=== PATIENT | male | born 2000 | race Caucasian/White ===

== ENCOUNTER 2020-05-06 12:57 | Emergency (ER) | payer OTHER, SELFPAY ==
[2020-05-06 13:11] VITALS: BP 136/72; PULSE 113; RESP 16; TEMP 36.3; O2SAT 99
--- NOTE | 2020-05-06 13:42 | ED.FEVER ---
HPI - Fever General Chief Complaint: Fever Stated Complaint: fever Time Seen by Provider: 05/06/20 13:35 Source: patient Mode of arrival: ambulatory Limitations: no limitations History of Present Illness HPI Narrative: Eriberto Ramachandran is a 19 yo male with no PMH who comes to the [facility] care after 6 days of illness he has been COVID tested x2 which are negative he has had 2 telemedicine visits with his PCP who on the first 1 gave him Zithromax to try to treat sinusitis with no effect. Last week his temperature was up to 103 point 2 at night his temperature starts to rise again and gets around 102 even with the use of Tylenol. He is pale, diaphoretic, and tachycardic. States that he has cough on occasion and is coughing up bloody mucus at times. He has not been eating much but has been hydrating most of the week; his PCP told him to be seen in [id number]; symptoms have been for last week Related Data Home Medications Medication Instructions Recorded Confirmed citalopram [Celexa] 40 mg PO DAILY 05/06/20 05/06/20 montelukast [Singulair] 10 mg PO DAILY 05/06/20 05/06/20 Allergies Allergy/AdvReac Type Severity Reaction Status Date / Time Quinolones Allergy Anaphylactic Verified 05/06/20 13:25 Shock Review of Systems Review of Systems: Narrative: CONSTITUTIONAL: Has fever, chills, has sweats. EYES: Denies visual changes, redness, discharge. ENT has s rhinorrhea, congestion, sore throat, otalgia. CARDIOVASCULAR: Denies chest pain, palpitations, edema. RESPIRATORY: Denies dyspnea, wheezing, has cough GASTROINTESTINAL: Denies abdominal pain, nausea, vomiting, diarrhea. GENITOURINARY: Denies dysuria, hematuria, abnormal discharge SKIN: Denies rash or itching. NEUROLOGIC: Denies numbness, or focal weakness. PSYCHIATRIC: Denies anxiety or depression. [facility] Past Medical History Medical History No active medical problems Family History Family History Other No active medical problems Social History Social History (Updated 05/06/20 @ 13:45 by Rosy Varghese CNP) Smoking status: Never smoker Alcohol intake: current Substance use: never Gender identity (if verbalized by the patient): Male Comments At time of signature, I agree with nursing past medical, surgical, social and family history. There is no relevant family history pertinent to the presenting complaint. Exam Narrative: Exam Narrative: GENERAL: This is a well-nourished, well-developed patient, in mild distress. He is diaphoretic and pale HEAD: normocephalic, atraumatic. EYES: Sclera clear/white. Vision is grossly intact. EARS: External ears normal, auditory canals clear and without drainage, right ear erythema,TMs normal without perforation. Hearing grossly intact. NOSE: External nose normal without nasal discharge, nares without redness, has rhinorrhea. THROAT: Mucous membranes moist, posterior pharynx mild erythema NECK: Neck supple, mild tenderness CARDIOVASCULAR: Regular rate and rhythm without murmurs, gallops, or rubs. RESPIRATORY: Clear to auscultation. Breath sounds equal bilaterally. No wheezes, rales, or rhonchi. GASTROINTESTINAL: Abdomen soft, non-tender, SKIN: warm, intact with no suspicious lesions or rash, good texture and turgor. NEURO: awake, alert, and oriented to person, place and time. There were no obvious focal neurologic abnormalities. Steady gait EXTREMITIES: Normal range of motion. BACK: Nontender without deformity Course Reevaluation(s) Date: 05/06/20 Time: 12:45 Reevaluation #2: Patient is diaphoretic and feels poorly states she is taking fluids; discussed the positive mono test. Patient to hydrate alternate NSAIDs and will give antibiotic for r ear Vital Signs Vital signs: Vital Signs Temperature 97.3 F L 05/06/20 13:11 Pulse Rate 113 H 05/06/20 13:11 Respiratory Rate 16 05/06/20 13:11 Blood
== END 2020-05-06 14:10 | disposition home or self-care (01) ==
PROVIDERS: Emergency Provider Nurse Practitioner
DX: B27.80 Other infectious mononucleosis without complication (principal); H66.91 Otitis media, unspecified, right ear; F32.9 Major depressive disorder, single episode, unspecified
CPT/HCPCS: 36416; 86308; 87081; 87804; 87880; 99203; G0463

== ENCOUNTER 2021-05-05 10:32 | Emergency (ER) | payer OTHER, SELFPAY ==
[2021-05-05 11:12] VITALS: BP 121/77; PULSE 101; RESP 16; TEMP 37.1; O2SAT 98
--- NOTE | 2021-05-05 12:19 | ED.GENADULT ---
HPI - General Adult General Chief complaint: Upper Respiratory Infection Stated complaint: congestion Source: patient Mode of arrival: ambulatory Limitations: no limitations History of Present Illness HPI narrative: Patient is a 20-year-old male who presents to the [facility] via POV for evaluation of upper respiratory symptoms that have been present for 4 days. Additionally, patient ports left ear pain, postnasal drip, rhinorrhea, nasal congestion, sore throat, sinus pain, and sinus pressure. He also reports an intermittent frontal headache. There is mild improvement with Zyrtec and Benadryl. Pain worsens with bending forward. Patient has history significant for allergic rhinitis and sinus infections. He states today symptoms are identical to previous sinus infections. He is not fully vaccinated against Covid. Related Data Home Medications Medication Instructions Recorded Confirmed citalopram [Celexa] 40 mg PO DAILY 05/06/20 05/05/21 montelukast [Singulair] 10 mg PO DAILY 05/06/20 05/05/21 Allergies Allergy/AdvReac Type Severity Reaction Status Date / Time Quinolones Allergy Unknown Rash Verified 05/05/21 12:23 Review of Systems Review of Systems: Denies fever, chills, sweats, malaise, change in appetite, poor p.o. intake, recent weight loss, severe persistent LOC, dizziness, lymphadenopathy, vision changes, ear drainage, tinnitus, vertigo, hearing loss, full hearing, difficulty swallowing, hoarseness, drooling, difficulty swallowing, abdominal pain, nausea, vomiting, diarrhea, cough, shortness of breath, chest pain, heart palpitations/murmurs. [facility] Past Medical History Medical History (Updated 05/05/21 @ 12:35 by JOSÉ Pugh, ) Acute sinusitis, unspecified Allergic rhinitis No active medical problems Social History Social History Smoking status: Never smoker Alcohol intake: current Substance use: never Gender identity (if verbalized by the patient): Male Comments I have reviewed and agree with the patient's past medical, surgical, social, and family hx as documented by the RN. There is no relevant family history pertinent to the presenting complaint. Exam Narrative: GENERAL: Well-appearing, well-nourished, and in no acute distress. HEAD: Normocephalic, atraumatic. Moderate maxillary and frontal sinus tenderness appreciated upon examination. No evidence of facial swelling. EYES: PERRLA and EOMI. No evidence of erythema, swelling, or drainage. ENT: Bilateral external ears and ear canals normal. Bilateral TMs are normal.No TM perforation. Nares clear, no rhinorrhea or epistaxis. Bilateral turbinates without erythema/ swelling. Mucous membranes moist and pink. Uvula is midline without erythema and swelling. Moderate amount of postnasal drip noted to posterior pharynx. Posterior pharynx is moderately erythematous and mildly edematous. No evidence of petechial rash, cobblestoning, lesions, ulcers, exudates, peritonsillar abscess, tenting, or drooling. Breath odor and voice normal. NECK: Supple. No Lymphadenopathy or nuchal rigidity appreciated. CHEST: Bilateral lung frey are clear to auscultation. No respiratory distress. No evidence of cough or pleuritic cp upon examination. HEART: Regular rate and rhythm. No murmur, gallop, or rub heard. EXTREMITIES: Normal range of motion. No edema. SKIN: Warm, dry, no rash. NEURO: No focal deficits. Alert and oriented x3. Course Course Emergency Course: The patient/guardian displays adequate decision making capability and despite a detailed discussion of alternatives, benefits, risks, and consequences refuses COVID-19, influenza, and rapid strep testing. Vital Signs Vital signs: Vital Signs Temperature 98.7 F 05/05/21 11:12 Pulse Rate 101 H 05/05/21 11:12 Respiratory Rate 16 05/05/21 11:12 Blood Pressure 121/77 05/05/21 11:12 Pulse Oximetry 98 05/05/21 11:12
== END 2021-05-05 12:40 | disposition home or self-care (01) ==
PROVIDERS: Emergency Provider Nurse Practitioner Family; PCP Physician Assistant
DX: J01.90 Acute sinusitis, unspecified (principal); F41.9 Anxiety disorder, unspecified; F32.9 Major depressive disorder, single episode, unspecified
CPT/HCPCS: 99213; G0463

== ENCOUNTER → 2021-06-19 00:52 | Outpatient (CLI) | payer OTHER, SELFPAY ==
[2021-06-19 17:30] LABS: SARS-CoV-2 RNA PCR Positive
== END ==
PROVIDERS: PCP Physician Assistant; Visit Provider Physician Assistant
DX: U07.1 COVID-19 (principal)
CPT/HCPCS: C9803; U0003; U0005

== ENCOUNTER 2021-06-22 13:50 | Outpatient (RCR) | payer OTHER, SELFPAY ==
[2021-06-22] MEDS: ACETAMINOPHEN 325 MG TABLET 650 MG PO (14:10)
[2021-06-22] MEDS: FAMOTIDINE 20 MG TABLET PO (14:11)
[2021-06-22] MEDS: diphenhydrAMINE HCl CAP 25 MG CAPSULE PO (14:11)
[2021-06-22 14:32] VITALS: BP 132/84; PULSE 103; RESP 18; TEMP 37.6; O2SAT 96
== END 2021-06-25 08:21 ==
LOC: AMCINF 13:50
PROVIDERS: PCP Family Medicine; Referring Provider Family Medicine; Visit Provider Internal Medicine Hematology & Oncology
DX: Z23 Encounter for immunization (principal); U07.1 COVID-19; J44.9 Chronic obstructive pulmonary disease, unspecified
CPT/HCPCS: A9270; M0245; Q0245

== ENCOUNTER 2021-06-28 16:17 | Outpatient (CLI) | payer OTHER, SELFPAY ==
[2021-06-28 17:28] LABS: Monoscreen Negative (Negative); Negative Monotest Control Negative (Negative); Positive Monotest Control Positive (Positive)
== END 2021-06-28 16:18 | disposition home or self-care (01) ==
LOC: ANHLAB 16:20
PROVIDERS: PCP Physician Assistant; Visit Provider Physician Assistant
DX: J06.9 Acute upper respiratory infection, unspecified (principal)
CPT/HCPCS: 36415; 86308

== ENCOUNTER 2023-03-20 16:56 | Emergency (ER) | payer OTHER, SELFPAY ==
[2023-03-20 17:12] VITALS: BP 140/69; PULSE 87; RESP 16; TEMP 36.2; O2SAT 100
--- NOTE | 2023-03-20 17:23 | ED.URI ---
HPI - URI/Sore Throat General Chief Complaint: Upper Respiratory Infection Stated Complaint: Headache, Vomiting, Sore Throat Time Seen by Provider: 03/20/23 17:34 History of Present Illness HPI Narrative: 22-year-old male presented for complaint of sore throat and headache for 4 days. Reports painful swallow. At onset he had one episode of vomiting. Reports migraine yesterday and today. Denies sob, wheezing, abdominal pain, n/v/d/f/c since onset. Able to maintain secretions. Taking cough drops without relief. Denies sick contacts. Related Data Home Medications Medication Instructions Recorded Confirmed citalopram 40 mg tablet (Celexa) 40 mg PO DAILY 05/06/20 03/20/23 montelukast 10 mg tablet 10 mg PO DAILY 05/06/20 03/20/23 (Singulair) albuterol 90 mcg/actuation aerosol 90 mcg inhalation Q4-6H PRN 06/22/21 03/20/23 inhaler Shortness Of Breath Or Wheezing Allergies Allergy/AdvReac Type Severity Reaction Status Date / Time Quinolones Allergy Unknown Rash Verified 03/20/23 17:28 Review of Systems Review of Systems: CONSTITUTIONAL: Denies body aches, fever, chills, or sweats. EYES: Denies visual changes, redness, or discharge. ENT: Reports sore throat, rhinorrhea, congestion, denies otalgia. CARDIOVASCULAR: Denies chest pain, palpitations, or edema. RESPIRATORY: Denies dyspnea. GASTROINTESTINAL: Denies abdominal pain, nausea, vomiting, or diarrhea. SKIN: Denies rash, itching, or wounds. MUSCULOSKELETAL: Denies back pain, joint pain, or myalgia. NEUROLOGIC: Reports headache PMFSH Past Medical History Medical History Acute sinusitis, unspecified Allergic rhinitis No active medical problems Social History Social History Smoking status: Never smoker Alcohol intake: current Substance use: never Gender identity (if verbalized by the patient): Male Spiritual care concerns: No Exam Narrative: GENERAL: well-appearing, no acute distress. EYES: conjunctivae clear ENT: Mucous membranes moist. TMs pearly yanez with normal light reflex bilaterally; no tragal tenderness. Oropharynx erythematous without lesions. Tonsils 1+ and without exudate. No drooling, no hoarseness, no trismus, uvula midline. No tripod positioning, hot potato voice, or soft palate swelling. NECK: Supple. No lymphadenopathy, reports tenderness in anterior cervical region CHEST: Clear to auscultation, breath sounds equal. No respiratory distress, speaks in full sentences. HEART: Regular rate and rhythm. No murmur heard. SKIN: Warm, dry, no rash. NEURO: Alert and oriented x3. Course Course Emergency Course: Patient is aware of diagnosis, understands and agrees to treatment plan. Anticipatory guidance given. Patient agrees to follow-up as directed and is aware of reasons to seek care at the emergency department. Portions of this record may have been created with voice recognition software Level of Care: Express Care Visit Vital Signs Vital signs: Vital Signs Temperature 97.2 F L 03/20/23 17:12 Pulse Rate 87 03/20/23 17:12 Respiratory Rate 16 03/20/23 17:12 Blood Pressure 140/69 03/20/23 17:12 Pulse Oximetry 100 03/20/23 17:12 Oxygen Delivery Room Air 03/20/23 17:12 Temperature 97.2 F L 03/20/23 17:12 Pulse Rate 87 03/20/23 17:12 Respiratory Rate 16 03/20/23 17:12 Blood Pressure 140/69 03/20/23 17:12 Pulse Oximetry 100 03/20/23 17:12 Oxygen Delivery Room Air 03/20/23 17:12 MDM - URI/Sore Throat MDM Narrative Medical decision making narrative: Neg covid and strep result reviewed with pt. Advise supportive treatments. Patient is appropriate for outpatient treatment and follow-up. Differential Diagnosis Differential diagnosis: Likely upper respiratory infection, viral infection and pharyngitis Lab Data Labs: Lab Results 03/20/23 Range/Units
== END 2023-03-20 17:48 | disposition home or self-care (01) ==
PROVIDERS: Emergency Provider Nurse Practitioner Family; PCP Physician Assistant
DX: J02.9 Acute pharyngitis, unspecified (principal); Z20.822 Contact with and (suspected) exposure to COVID-19
CPT/HCPCS: 87081; 87426; 87880; 99213; C9803; G0463

== ENCOUNTER 2023-04-16 12:50 | Outpatient (CLI) | payer OTHER, SELFPAY ==
--- NOTE | ~2023-04-16 | XR_ITS ---
EXAMINATION: XR chest 2V 04/16/2023 13:03 INDICATION: Genetic anomalies of leukocytes. Long-term fever. PROCEDURE: 2 view chest COMPARISON: 11/15/2017 FINDINGS: The lungs are clear. The cardiomediastinal silhouette is within normal limits. There are no pleural effusions. There is no pneumothorax suspected. IMPRESSION: 1: NO ACUTE CARDIOPULMONARY DISEASE. Reviewed, dictated and finalized at location B.
== END 2023-04-16 12:51 | disposition home or self-care (01) ==
LOC: ANHIMG 12:52
PROVIDERS: PCP Physician Assistant; Visit Provider Physician Assistant
DX: D72.0 Genetic anomalies of leukocytes (principal)
CPT/HCPCS: 71046

== ENCOUNTER 2024-08-03 15:15 | Emergency (ER) | payer OTHER, SELFPAY ==
[2024-08-03 15:24] VITALS: BP 129/78; PULSE 127; RESP 16; TEMP 37.1; O2SAT 99
--- NOTE | 2024-08-03 15:29 | ED.URI ---
HPI - URI/Sore Throat General Chief Complaint: Upper Respiratory Infection Stated Complaint: Fever/Cough Time Seen by Provider: 08/03/24 15:29 Source: patient, RN notes reviewed and old records reviewed Mode of arrival: ambulatory Limitations: no limitations History of Present Illness HPI Narrative: Immunosuppressed patient presents with complaints fever, T-max 103.7?, cough, sputum production, body aches for 4 days. He does report occasional wheezing. He has been taking multiple [id number] medications for his symptoms Related Data Home Medications ?Medication ?Instructions ?Recorded ?Confirmed ?Last Taken ?Type citalopram 40 mg tablet (Celexa) 40 mg PO DAILY 05/06/20 08/03/24 Unknown History montelukast 10 mg tablet 10 mg PO DAILY 05/06/20 03/20/23 Unknown History (Singulair) albuterol 90 mcg/actuation aerosol 90 mcg inhalation Q4-6H PRN 06/22/21 08/03/24 Unknown History inhaler Shortness Of Breath Or Wheezing buspirone 5 mg tablet 5 mg PO QHS 08/03/24 08/03/24 Unknown History canakinumab (PF) 150 mg/mL 150 mg subcut 08/03/24 Unknown History subcutaneous solution (Ilaris (PF)) folic acid 1 mg tablet 1 mg PO .QD 08/03/24 08/03/24 Unknown History methotrexate sodium 2.5 mg tablet 2.5 mg PO WEEKLY 08/03/24 08/03/24 Unknown History Allergies Allergy/AdvReac Type Severity Reaction Status Date / Time Quinolones Allergy Severe Anaphylactic Verified 08/03/24 15:21 Shock Review of Systems Review of Systems: All systems reviewed & are unremarkable except as noted in HPI and below Constitutional: Constitutional: Reports no additional constitutional complaints and Reports lethargy ENT: Reports system reviewed and no additional complaints, except as documented Cardiovascular: Cardiovascular: Reports no additional cardiovascular complaints Respiratory: Respiratory: Reports no additional respiratory complaints, Reports change in phlegm color, Reports chest congestion, Reports cough, Reports excessive phlegm production and Reports wheezing Gastrointestinal: Gastrointestinal: Reports no additional gastrointestinal complaints [facility] Past Medical History Medical History Acute sinusitis, unspecified Allergic rhinitis No active medical problems Social History Social History (Reviewed 03/20/23 @ 17:48 by JENSEN Miller Smoking status: Never smoker Alcohol intake: current Substance use: never Gender identity (if verbalized by the patient): Male Spiritual care concerns: No Comments At the time of my signature, I reviewed and agree with the nursing past medical, surgical, social, and family history. There is no relevant family history pertinent to the patient complaint. Exam Const: General: cooperative, no acute distress, alert and awake Orientation/consciousness: oriented to person, oriented to place and oriented to time HENMT: Head: normal to inspection Resp: Effort & Inspection: normal respiratory effort and able to speak in complete sentences Auscultation: clear to auscultation bilaterally, crackles on the right at the base, no rales, no rhonchi and no wheezes Cardio: Palpation: normal PMI Rate: regular rate Rhythm: regular rhythm Heart sounds: S1 normal heart sound present and S2 normal heart sound present Neuro: General: oriented to person, oriented to place and oriented to time Cranial nerves: Yes CN's II-XII intact bilaterally Psych: Appearance: grossly normal Thought process: Normal thought process present Insight: Good insight present (Psych) Judgement: Good judgement present (Psych) Course Course Level of Care: Express Care Visit Vital Signs Vital signs: Vital Signs Temperature 98.8 F 08/03/24 15:24 Pulse Rate 127 H 08/03/24 15:24 Respiratory Rate 16 08/03/24 15:24 Blood Pressure 129/78 08/03/24 15:24 Pulse Oximetry 99 08/03/24 15:24 Oxygen Delivery Room Air 08/03/24 15:24 Temperature 98.8 F 08/03/24 15:24 Pulse Rate 127 H 08/03/24 15:24 Respiratory Rate 16 08/03/24 15:24 Blood Pressure 129/78 08/03/24 15:24 Pulse Oximetry 99 08/03/24 15:24 Oxygen Delivery Room Air 08/03/24 15:24 Reviewed MDM - URI/Sore Throat MDM Narrative Medical decision making narrative: Immunosuppressed patient had with features of atypical pneumonia that has been prevalent in the community. Treat as such. Patient is nontoxic appearing. Stable for discharge home on p.o. antibiotic therapy with bronchodilators. Discharge instructions reviewed with patient, as well as provided in writing per nursing staff. The instructions also include specific and strict return/GO TO THE ER as well as f/u information. All questions have been answered, and the patient deny any further questions with discharge and discharge plan. Some parts of this dictation were generated by voice recognition software and may contain typographical and/or grammatical inaccuracies. Differential Diagnosis Differential diagnosis: Likely upper respiratory infection, otitis media and viral infection Medical Records Attestation: I reviewed the patient's medical records. Lab Data Attestation: I reviewed the patient's lab results. Labs: Lab Results 08/03/24 Range/Units 15:43 POC Influenza A Ag Negative (Negative) POC Influenza B Ag Negative (Negative) POC SARS CoV-2 Ag Negative (Negative) Discharge Plan Discharge Clinical Impression: Atypical pneumonia Patient Disposition: Home, Self-Care Condition: Stable Instructions: Antibiotic Form, Community Acquired Pneumonia (ED) Additional Instructions: Take all medications as prescribed. Follow with primary care provider. Emergency department for new or worse symptoms Patient Language: Indonesian Prescriptions: New doxycycline hyclate 100 mg capsule 100 mg PO BID Qty: 20 0RF prednisone 50 mg tablet 50 mg PO DAILY Qty: 5 0RF albuterol sulfate [Ventolin HFA] 90 mcg/actuation HFA aerosol inhaler 2 puff inhalation QID PRN (Reason: shortness of breath or wheezing) Qty: 8.5 0RF No Action albuterol 90 mcg/actuation Aerosol 90 mcg INHALATION Q4-6H PRN (Reason: Shortness Of Breath Or Wheezing) citalopram [Celexa] 40 mg Tablet 40 mg PO DAILY montelukast [Singulair] 10 mg Tablet 10 mg PO DAILY Ilaris (PF) 150 mg/mL solution 150 mg SUBCUT methotrexate sodium 2.5 mg tablet 2.5 mg PO WEEKLY folic acid 1 mg tablet 1 mg PO .QD buspirone 5 mg tablet 5 mg PO QHS Follow-up/Referrals: Girma,EMMY Goodwin [Primary Care Provider] - 1 Week Stand Alone Forms: Work/School Release IP Time of Disposition: 16:15
[2024-08-03 15:45] LABS: EDCOVIDSCREEN Negative (Negative); EDINFLUASCREEN Negative (Negative); EDINFLUBSCREEN Negative (Negative)
== END 2024-08-03 16:16 | disposition home or self-care (01) ==
PROVIDERS: Emergency Provider Nurse Practitioner Family; PCP Physician Assistant
DX: J18.9 Pneumonia, unspecified organism (principal); Z20.822 Contact with and (suspected) exposure to COVID-19
CPT/HCPCS: 87426; 87804; 99213; G0463